=== PATIENT | female | born 1945 | race Caucasian/White ===

== ENCOUNTER 2020-08-26 12:23 | Emergency (ER) | payer MEDICARE, OTHER | END 2020-08-26 13:15 | disposition left against medical advice (07) | LOC: ER1 12:23 | DX: Z53.21 Procedure and treatment not carried out due to patient leaving prior to being seen by health care provider (principal) ==

== ENCOUNTER → 2021-12-09 | Day surgery (SDC) | payer MEDICARE, OTHER ==
[~2021-12-09] MED LIST: CONSTULOSE10 GM/15 M PO; DAILY VALUE1 EACH PO; HUMALOG100 UNIT/2 SC; INDERAL TAB 2020 MG PO; INSULIN GL100 UNIT/4 SQ; LASIX TAB 20 MG20 MG GT; LEVOTHYROXINE75 MC1 PO; PROAIR HFA8.5 GM INH; SINGULAIR10 MG PO; SPIRONOLACTONE25 MG PO; TRAMADOL HCL50 MG PO
== END | disposition home or self-care (01) ==
LOC: OR 09:00
DX: K74.69 Other cirrhosis of liver (principal); I85.10 Secondary esophageal varices without bleeding; K76.6 Portal hypertension; K31.89 Other diseases of stomach and duodenum; K72.90 Hepatic failure, unspecified without coma; I10 Essential (primary) hypertension; E11.9 Type 2 diabetes mellitus without complications; Z98.890 Other specified postprocedural states; Z88.1 Allergy status to other antibiotic agents
CPT/HCPCS: 82962; J7040